=== PATIENT | female | born 2000 | race Caucasian/White ===

== ENCOUNTER 2019-01-30 01:34 | Inpatient (IN) | payer BC, SELFPAY ==
--- NOTE | 2019-01-30 02:48 | W.PM.HP.N ---
History of Present Illness 18 yo at 38 6/7 weeks in active labor - sig ctx past 3-4 hours at home. Was 2-3 cm/100%.-2 station in office 12 hrs ago with Cat 1 strip. GBS neg labs and record per flow sheet - walking, shower, no sleep - ctx kept awake no beltran, nausea, visual changes no ptl, rom, pih, gdm this plans breast feeding SD risk low, but pelvis is untested O: alert, comfortable between ctx, tolerating with good support from SO/BF lungs - clear cvs - reg, no murmur abd - gravid 36 cm fh, non-tender ext - no edema, good sensation neck - no thyroid palpable Cvx - 6-7 cm/100%/0 station, intact/ TOM vtx Cat 1 strip, ctx q 2-3 strong ASS: Active labor Maternal; and wellbeing Intact, GBS neg P: Support, walk, shower, nitrous routine labs, admit IV EFM, intermittent monitoring Expect [facility] 0300 AM Results Labs : 01/30/19 02:41
[2019-01-30 03:15] LABS: HCT 30.1 % (36.0-46.0); HGB 9.3 g/dL (12.0-15.5); Mean Corp. HGB Concentration 30.9 g/dL (32.0-36.0); Mean Corpuscular Hemoglobin 23.4 pg (27.0-33.0); Mean Corpuscular Volume 75.8 fL (80-95); Mean Platelet Volume 11.3 fL (8.0-11.0); Platelet Count 299 x1000/uL (130-400); RBC 3.97 m/cumm (4.00-5.20); RBC Distribution Width 15.6 % (11.7-14.6); White Blood Cell Count 12.94 k/cumm (4.4-10.8)
[2019-01-31 07:32] LABS: HCT 26.9 % (36.0-46.0); HGB 8.2 g/dL (12.0-15.5); Mean Corp. HGB Concentration 30.5 g/dL (32.0-36.0); Mean Corpuscular Hemoglobin 23.7 pg (27.0-33.0); Mean Corpuscular Volume 77.7 fL (80-95); Mean Platelet Volume 11.3 fL (8.0-11.0); Platelet Count 266 x1000/uL (130-400); RBC 3.46 m/cumm (4.00-5.20); RBC Distribution Width 15.9 % (11.7-14.6); White Blood Cell Count 13.88 k/cumm (4.4-10.8)
[2019-01-31] MEDS: Ibuprofen 600 MG TAB PO (19:25)
--- NOTE | 2019-02-01 07:46 | W.PM.HP.N ---
History of Present Illness Discharge Summary: hosp course: - no lac took to quite well shortly doing all self care, showered, ambulating, decreased lochia exam shows excellent vitals, firm fundus, no pedal edema intends to start with ocp's mini-pill discussed risk of pp depression and signs of same she agrees to home health referral good family support f/u wed 8:45 at [facility] Janes Dumont [facility] Social History Smoking/Tobacco Use Status: Former Tobacco Use Results Labs : 01/31/19 07:15
--- NOTE | 2019-02-01 07:50 | HPE_ITS ---
History of Present Illness Discharge Summary: hosp course: - no lac took to quite well shortly doing all self care, showered, ambulating, decreased lochia exam shows excellent vitals, firm fundus, no pedal edema intends to start with ocp's mini-pill discussed risk of pp depression and signs of same she agrees to home health referral good family support f/u wed 8:45 at [facility] Janes Dumont [facility] Social History Smoking/Tobacco Use Status: Former Tobacco Use Results Labs : 01/31/19 07:15
[2019-02-01] MEDS: Ibuprofen 600 MG TAB PO (10:36)
[2019-02-01] MEDS: Acetaminophen 325 MG TAB 650 MG PO (10:37)
== END 2019-02-01 14:00 | disposition home or self-care (01) | DRG 807 ==
PROVIDERS: Admitting Provider Family Medicine; PCP Family Medicine; Visit Provider Family Medicine
DX: O69.81X0 Labor and delivery complicated by cord around neck, without compression, not applicable or unspecified (principal); Z37.0 Single live birth; O76 Abnormality in fetal heart rate and rhythm complicating labor and delivery; Z3A.38 38 weeks gestation of pregnancy
CPT/HCPCS: 36415; 85027; 86850; 86900; 86901; NC; G0378; J3490

== ENCOUNTER 2022-04-02 02:29 | Inpatient (IN) | payer OTHER, SELFPAY ==
[2022-04-02] VITALS (15 sets, daily range): BP systolic 108–125; BP diastolic 53–74; PULSE 68–133; RESP 16–20; TEMP 36.6–36.9; O2SAT 99–100
--- NOTE | 2022-04-02 03:38 | HPE_ITS ---
Date of service: 04/02/22 Time of Service: 03:38 Assessment and Plan Assessment and plan (1) : Status: Acute Assessment and plan: Sonal is doing well, in early labor, becoming active. SVE here is /-3. FHT is category 1. She has made good progress today. GBS-. No epidural with first baby, she is unsure if she wants one now. Will have her walk, and start with nitrous which has been effective for her previously. Routine labor care. Qualifiers: Weeks of gestation: 38 weeks Qualified Code(s): Z3A.38 - 38 weeks gestation of OB-HPI Labor/Delivery History of Present Illness Reason for Visit: Rule out labor Chief Complaint: Uterine Contractions. LEOBARDO Calculator Estimated Delivery Date Method Current WG Current Estimate 04/11/22 LMP (Uncertain) 38w 5d Comments: Sonal is a 21yo at 38.5 weeks with Rh+ RI Hep B- GBS-. She has had an uncomplicated , although BP has been borderline. An echogenic focus was seen on scan, genetic testing normal, per [facility], no further action necessary. She was seen today in clinic with SVE 3, membranes stripped. Called later in the evening with regular contractions starting at about 6pm. These progressed in intensity and frequency until she felt ready to present to L&D. No ROM. History of Present Expected Delivery Route/Plan Specific Issues/Plan echogenic focus on anatomy scan, normal cell free DNA testing, no further intervention indicated. Assessment: History Reviewed & Current Review of Systems All systems reviewed & are unremarkable except as noted in HPI and below PFSH All Active Problems (Updated 04/02/22 @ 03:45 by Jones Lim) (Acute) Social History Smoking/Tobacco Use Status: Former Tobacco Use Smoking risk assessment performed?: Yes Meds Allergies and Home Medications Allergies Allergy/AdvReac Type Severity Reaction Status Date / Time No Known Allergies Allergy Unverified 02/01/19 09:43 Home Medications Medication Instructions Recorded Confirmed Type vit no.95-ferrous 1 tab PO DAILY PRN PRN 02/01/19 02/01/19 History fumarate 28 mg-folic acid 800 mcg tablet () Exam Physical Exam Vital Signs Reviewed: Yes Constitutional Constitutional: mild distress Detailed Labor and Delivery Exam Dilation: 5 Effacement (%): 60 station: -3 Cervix position: mid Consistency: soft Tejada Score: Cervical Points Exam 0 1 2 3 Dilation Closed 1-2cm 3-4 cm 5-6cm Effacement 0-30% 40-50% 60-70% 80% Consistency Firm Medium Soft Station -3 -2 -1,0 +1,+2 Position Posterior Mid Anterior TEJADA Score(Cervical Ripeness Score): 8 Amniotic Membrane Status: Intact Monitor Mode: External Contraction Frequency(min): 4 Contraction Duration(sec): 60 Contraction Intensity: Moderate Fetus A Heart Rate Baseline: 150 Monitor Accelerations: Present Monitor Decelerations: None Variability: Moderate (6-25 BPM) Presentation: Cephalic Categories: Category I HEENT Exam HEENT Exam: Normal Respiratory Exam Respiratory Exam: Normal Cardiovascular Exam Cardiovascular Exam: Normal Abdominal Exam Abdominal Exam: Normal Exam Exam: Normal Extremities Exam Extremities Exam: Normal Back/Spine/Pelvis Exam Pelvis Adequate: Yes Skin Exam Skin Exam: Normal Neurological Exam Neurological Exam: Normal Psychiatric Exam Psychiatric Exam: Normal Results Results Group Beta Strep: Negative Blood Type: O+ Rubella Status: Immune Varicella Immunity: Not Tested Risk Assessment Risks Reviewed Risks Reviewed Upon Admission: Yes
[2022-04-02 04:04] LABS: HCT 31.9 % (36.0-46.0); HGB 9.9 g/dL (11.2-15.7); MCH 24.6 pg (27.0-33.0); MCV 79 fL (80-95); MPV 11.5 fL (8.0-11.0); Platelet Count 210 10^3/uL (130-400); RBC 4.02 10^6/uL (3.93-5.22); RDW 14.5 % (11.7-14.6); RDW-SD 41.9 fL; WBC 11.86 10^3/uL (4.4-10.8)
[2022-04-02 04:10] LABS: Source Nasal/Nares
[2022-04-02 04:43] LABS: COVID-19 PCR Negative (Negative)
[2022-04-02] MEDS: Oxytocin 10 UNITS/ML VIAL IM (08:19)
[2022-04-02] MEDS: Acetaminophen 325 MG TAB 650 MG PO ×2 (08:55→19:34)
--- NOTE | 2022-04-02 09:02 | W.OBDELIVERY ---
Date of service: 04/02/22 Time of Service: 09:02 OB Labor/ Delivery Information Baby A Delivery Delivery Method: Spontaneaous Presentation: Cephalic (with hand by face) Cephalic Position: Vertex Vertex Position: Left Occipital Posterior Breech Position: N/A Cord Description-Baby A: 3 Vessels and Nuchal Cord (very loose around neck and arm) Amniotic Fluid: Clear Estimated Blood Loss: 200cc Delivery Outcome: Liveborn Infant Transferred: Remains with Mother Note: Teresita progressed well overnight making slow cervical change. At about 740am, nurse reported bulging bag with cervix at 9cm, and we discussed and performed AROM with copious clear fluid. She then quickly progressed to complete and began pushing. She pushed effectively with nitrous for pain management and delivered a vigourous baby boy in LOP position with right hand near his face. There was a very loose nuchal cord around the arm and neck that was delivered through and then removed. Baby was placed on moms abdomen. She did have increased bleeding just after delivery. Cord was therefore cut for better access. Fundus was firm, 1cm below umbilicus. Bleeding stopped temporarily with pressure on the lower vaginal wall but I was not able to visualize the source well. IM pitocin was given as no IV could be obtained during labor. Miso was ready to be administered rectally, but bleeding stopped before it was given. I explored the vaginal cavity for other lacerations, but at that time, there was no active bleeding no lacerations were found other than a first degree perineal laceration that did not require repair. Apgars were 8 and 9. Mom was doing well although emotional as her could not be present. Mom and cousin were excellent support. Anticipate routine post care. Providers Doctor: Jones Lim [employer] Mechanic: Jones Lim Nurse: Sonia Polo Nurse: Zoë Nunes Labor/Delivery Information Number of Babies in Womb: 1 Steroids Given: None Reason Steroids Not Administered: N/A Group Beta Strep: Negative Antibiotics Administered: No Rubella Status: Immune Blood Type: O+ Varicella Immunity: Not Tested Maternal Complications: None Shoulder Dystocia: No Stages of Labor Onset of Labor Date: 04/02/22 Onset of Labor Time: 01:00 Complete Dilatation Date: 04/02/22 Complete Dilatation Time: 07:45 Labor - Stage 1 Duration: 0 minutes ROM Baby A: 04/02/22 ROM Baby A: 07:35 ROM Total Time- Baby A: [id number] Infant Delivery Date-Baby A: 04/02/22 Delivery Time-Baby A: 08:17 Labor Stage 2 Duration: 32 minutes Placenta Delivery Date-Baby A: 04/02/22 Placenta Delivery Time-Baby A: 08:22 Labor-Stage 3 Duration: 5 minutes Total Length of Labor-Baby A: 7 hours and 17 minutes Placenta Cultured: No Placenta Status: Delivered Baby A Gender: Male Gestational Status: Term (39-41.6 wks) Gestational Age in Weeks/Days: 38 Weeks and 5 Days Score-1 Minute Interval(Baby A) Heart Rate-1 minute: 100 BPM or Greater Respiratory Effort- 1 minute: Spontaneous/Strong Cry Muscle Tone-1 minute: Active Movement Reflex Response-1 minute: Prompt Response Color-1 minute: Pallor or Cyanosis Total Score-1 minute: 8 Score-5 Minute Interval(Baby A) Heart Rate- 5 minute: 100 BPM or Greater Respiratory Effort-5 minute: Spontaneous/Strong Cry Muscle Tone-5 minute: Active Movement Reflex Response-5 minute: Prompt Response Color-5 minute: Bluish Hands or Feet Total Score- 5 minute: 9
[2022-04-02] MEDS: Lidocaine 1% Multi-Dose 20 ML VIAL IJ (11:02)
[2022-04-02] MEDS: Ibuprofen 600 MG TAB PO ×2 (15:00→21:41)
[2022-04-03 02:00] VITALS: BP 103/66; PULSE 68; RESP 18; TEMP 36.8
[2022-04-03 10:00] VITALS: BP 108/67; PULSE 94; RESP 18; TEMP 36.8; O2SAT 98
[2022-04-03] MEDS: Ibuprofen 600 MG TAB PO (10:25)
[2022-04-03] MEDS: Acetaminophen 325 MG TAB 650 MG PO (10:26)
[2022-04-03] MEDS: Dibucaine 1% 28 GM TUBE TP (10:29)
[2022-04-03] MEDS: Hamamelis Leaf/Glycerin 100 EACH BOX PR (10:30)
[2022-04-03 11:16] VITALS: BP 107/68; PULSE 86; RESP 16; TEMP 37; O2SAT 97
--- NOTE | 2022-04-03 13:22 | W.PM.OBDISCH ---
Date of service: 04/03/22 Time of Service: : DS: Diagnosis Discharge Diagnosis (1) : Start date: 04/03/22 Start time: Status: Acute Asessment and Plan: Sonal is doing well, will DC home today. Recommend rest and minimize activity for at least the first week. Follow up in clinic tomorrow with baby for weight check. Discharge Plan Disposition Patient Disposition: HOME Condition: Good Discharge Details Reason For Visit: Rule out labor Admit Date/Time: 04/02/22 03:10 Admit Provider: Jones Lim Attending Provider: Jones Lim Primary Care Provider: Jones Lim Home Meds and New Rx's Prescriptions: No Action PNV cmb#95-ferrous fumarate-FA [] 28 mg iron- 800 mcg Tablet 1 tab PO DAILY PRN PRN Discharge Instructions Stand Alone Forms: BC Post Vaginal Deliver Activity:: Activity as Tolerated Equipment/Supplies:: No Equipment Needed Diet:: As Tolerated Discharge Orders Discharge Orders: Discharge Order (Routine); Ordered 04/03/22 Ordered By: Jones Lim OB:DS Summary Summary Vaginal Delivery Method: Spontaneaous Episiotomy Description: None Laceration Description: None Laceration Extension: N/A Contraception Discussed Contraception Discussed: Yes, Gender-Baby A: Male weight: 3025 g Disposition of Baby A: Home Status at Discharge Functional status at discharge: independent ambulation Overall status at discharge: patient is not back to baseline Mental Status: mental status grossly normal Speech and Movement: speech and movement normal Mood: congruent mood Affect: normal affect Time Spent with Patient providing and/or coordinating discharge services: Less than 30 minutes Hospital Course Sonal presented in active labor and progressed well without any issues. She delivered a vigorous baby boy with apgars of 8 and 9. She did have increased bleeding but this was controlled with IM pitocin and pressure on lacerations, and stopped once placenta was delivered. No other issues. She is doing well, using NSAIDs for pain management, voiding without issue. No BM yet. Up and about without dizziness. Lochia normal. Eating well. Nursing is going well, working with . Exam Physical Exam Vital signs: Temp Pulse Resp BP Pulse Ox 37 C 86 16 107/68 97 04/03/22 11:16 04/03/22 11:16 04/03/22 11:16 04/03/22 11:16 04/03/22 11:16 Vital Signs Reviewed: Yes Constitutional Constitutional: no acute distress HEENT Exam HEENT Exam: Normal Respiratory Exam Respiratory Exam: Normal Cardiovascular Exam Cardiovascular Exam: Normal Fundal Exam Fundus: Below Umbilicus and Firm Extremities Exam Extremity Exam: Normal Neurological Exam Neurological Exam: Normal Psychiatric Exam Psychiatric Exam: Normal PFSH All Active Problems (Updated 04/02/22 @ 03:45 by Jones Lim) (Acute) Social History Smoking/Tobacco Use Status: Former Tobacco Use Smoking risk assessment performed?: Yes Alcohol Intake: never Substance use type: does not use Do you feel safe at home: Yes Do you feel safe in your relationship?: Yes History History 2 Para 1 Hx # Term Pregnancies Multiple births Hx # Pregnancies Ectopic pregnancies AB induced Hx Number of Living Children AB spontaneous DS: Data Vitals/I&O Vitals and I&O: Vital Signs Temperature 37 C 04/03/22 11:16 Pulse 86 04/03/22 11:16 Pulse Rhythm Regular 04/03/22 10:00 Respiratory Rate 16 04/03/22 11:16 Respiratory Depth Normal 04/03/22 10:00 Blood Pressure 107/68 04/03/22 11:16 Blood Pressure Mean 81 04/03/22 11:16 Pulse Oximetry 97 04/03/22 11:16 Oxygen Delivery Method Room Air 04/02/22 03:40 Oxygen Flow Rate 0 04/02/22 03:40 Pain Level 4 04/03/22 10:26 Intake & Output 04/02/22 04/03/22 04/03/22 23:59 11:59 23:59 Output Total 1000 / 1600 Balance -1000 / -1600 Output: Urine 1000 / 1600 Other: Urine Color Pale Pale
== END 2022-04-03 16:00 | disposition home or self-care (01) | DRG 807 ==
PROVIDERS: Admitting Provider Family Medicine; PCP Family Medicine; Visit Provider Family Medicine
DX: O69.81X0 Labor and delivery complicated by cord around neck, without compression, not applicable or unspecified (principal); Z37.0 Single live birth; O70.0 First degree perineal laceration during delivery; Z3A.38 38 weeks gestation of pregnancy
CPT/HCPCS: 36415; 85027; 86850; 86900; 86901; 87635; J2590; J3490